=== PATIENT | female | born 1945 | race Caucasian/White ===

== ENCOUNTER 2020-05-15 09:11 | Outpatient (CLI) | payer MEDICARE, OTHER, SELFPAY ==
[2020-05-15] MEDS: iohexol 300 mg/mL 50 mL Btl PO (10:02)
--- NOTE | 2020-05-15 11:00 | CT_ITS ---
WS: [id number] CT ABDOMEN PELVIS TECHNIQUE: Contrast-enhanced CT of the abdomen and pelvis with coronal and sagittal reformatted image s. CLINICAL INFORMATION: abdominal mass, scar tissure COMPARISON: None. DLP: 1129.[address] scans at [facility] use at least one of these dose optimization techniques: automat ed exposure control; mA and/or kV adjustment per patient size (includes targeted exams where dose is matched to clinical indication); or iterative reconstruction. FINDINGS: Diffuse fatty infiltration of the liver. Cholecystectomy. Prior hysterectomy. Normal spleen. Subsegme ntal atelectasis right lower lobe. Normal pancreas. Adrenal glands are normal. Normal renal parenchym al enhancement. Small left renal cysts. No hydronephrosis in either kidney. Normal caliber abdominal aorta. Aortic calcification. No periaortic lymphadenopathy. Sigmoid diverticulosis. No evidence of acute diverticulitis. No evidence of small or large bowel obst ruction. Incidental fat-containing umbilical hernia. No herniated bowel. No abdominal or pelvic lymphadenopath y. No inguinal lymphadenopathy. Pelvic phleboliths. Disc osteophyte complex L3-4. Impression CT/CT abdomen pelvis w con* [id number] IMPRESSION: 1. Diffuse fatty infiltration of the liver. 2. Prior cholecystectomy and hysterectomy. 3. Incidental fat-containing umbilical hernia. No herniated bowel. 4. No abdominal or pelvic lymphadenopathy. 5. No other significant findings.
[2020-05-15] MEDS: iodixanol 320 mg/mL 100mL Btl IV (11:16)
== END 2020-05-15 09:12 | disposition home or self-care (01) ==
LOC: RADWPI 09:17
PROVIDERS: Family Provider Electrodiagnostic Medicine; PCP Electrodiagnostic Medicine; Visit Provider Surgery
DX: R19.00 Intra-abdominal and pelvic swelling, mass and lump, unspecified site (principal); K76.0 Fatty (change of) liver, not elsewhere classified; Z90.49 Acquired absence of other specified parts of digestive tract; Z90.710 Acquired absence of both cervix and uterus; K42.9 Umbilical hernia without obstruction or gangrene
CPT/HCPCS: 74177; Q9967

== ENCOUNTER → 2021-01-29 08:26 | Outpatient (BNVA) | payer MEDICARE, OTHER, SELFPAY | PROVIDERS: Family Provider Electrodiagnostic Medicine; PCP Electrodiagnostic Medicine; Visit Provider Specialist | DX: G62.89 Other specified polyneuropathies (principal) | CPT/HCPCS: 95885; 95909; 99203 ==

== ENCOUNTER 2021-04-10 12:31 | Outpatient (CLI) | payer MEDICARE, OTHER, SELFPAY ==
--- NOTE | 2021-04-10 12:38 | USCV_ITS ---
Abi Bone Age: 76 Gender: F : 1945 Exam Date: 04/10/2021 12:45 Ordering Phys: Russell Bear DO Technologist: Tremayne Alfaro Exam Location: [facility] – [place] Indication: SWELLING HISTORY: Lower extremity swelling. PROCEDURES: Venous duplex imaging was performed in only the right lower extremity. The following venous structures were evaluated: common femoral vein, profunda vein, proximal portion of the greater saphenous vein, superficial femoral vein, and the popliteal vein. In addition, the posterior tibial and peroneal trunk were evaluated. FINDINGS: Normal 2-D Doppler and augmentation and compressibility throughout the lower extremity venous structures. Additional imaging through the proximal calf veins also reveals no thrombus. Limited evaluation of the greater saphenous vein is patent with no thrombus.. CONCLUSIONS No evidence of right lower extremity DVT. Guerrero Parrish MD (Electronically Signed) Final Date: 10 April 2021 17:08 S
== END 2021-04-10 12:32 | disposition home or self-care (01) ==
LOC: RAD 12:35
PROVIDERS: PCP Electrodiagnostic Medicine; Visit Provider Electrodiagnostic Medicine
DX: E09.9 Drug or chemical induced diabetes mellitus without complications (principal); L84 Corns and callosities; L97.909 Non-pressure chronic ulcer of unspecified part of unspecified lower leg with unspecified severity; L30.1 Dyshidrosis [pompholyx]; M79.671 Pain in right foot; R60.0 Localized edema
CPT/HCPCS: 93971

== ENCOUNTER 2021-06-15 08:41 | Outpatient (CLI) | payer MEDICARE, OTHER, SELFPAY | END 2021-06-15 08:42 | disposition home or self-care (01) | LOC: WOUND 08:42 | PROVIDERS: PCP Electrodiagnostic Medicine; Visit Provider Emergency Medicine | DX: E11.621 Type 2 diabetes mellitus with foot ulcer (principal); L97.512 Non-pressure chronic ulcer of other part of right foot with fat layer exposed; I10 Essential (primary) hypertension; L97.519 Non-pressure chronic ulcer of other part of right foot with unspecified severity | CPT/HCPCS: 11042; 73630; 87070; 87077; 87176; 87186; 87205; 99203; G0463 ==

== ENCOUNTER 2021-06-15 11:18 | Outpatient (CLI) | payer MEDICARE, OTHER, SELFPAY ==
--- NOTE | 2021-06-15 11:24 | XR_ITS ---
WS: [id number] Exam: XR foot RT min 3V* [id number] Date/Time of Exam: 06/15/2021 11:24 AM Reason For Exam: DM/TYPE II W/ULCER No fracture or dislocation. There is soft tissue swelling and ulceration of the great toe. No sign of bone destruction. Degenerative changes in the IP joints, first MP joint in the midfoot joints. Moder ate bunion deformity. Calcaneal spurs. Hammertoe deformities of the second through the fifth toes. XR/XR foot RT min 3V* [id number] IMPRESSION: 1. No fracture or bone destruction. 2. Soft tissue swelling ulceration of the great toe. 3. Degenerative changes and other nonacute findings
== END 2021-06-15 11:19 | disposition home or self-care (01) ==
LOC: RAD 11:23
PROVIDERS: PCP Electrodiagnostic Medicine; Visit Provider Emergency Medicine
DX: E11.621 Type 2 diabetes mellitus with foot ulcer (principal); L97.519 Non-pressure chronic ulcer of other part of right foot with unspecified severity
CPT/HCPCS: 73630

== ENCOUNTER 2021-06-17 14:22 | Outpatient (RCR) | payer MEDICARE, OTHER, SELFPAY | END 2021-06-30 23:59 | disposition home or self-care (01) | LOC: SPT 14:22 | PROVIDERS: PCP Electrodiagnostic Medicine; Visit Provider Electrodiagnostic Medicine | DX: R59.1 Generalized enlarged lymph nodes (principal); R60.0 Localized edema; G62.9 Polyneuropathy, unspecified; L84 Corns and callosities; L97.909 Non-pressure chronic ulcer of unspecified part of unspecified lower leg with unspecified severity | CPT/HCPCS: 97140; 97161 ==

== ENCOUNTER 2021-06-22 08:43 | Outpatient (CLI) | payer MEDICARE, OTHER, SELFPAY | END 2021-06-22 08:44 | disposition home or self-care (01) | LOC: WOUND 08:46 | PROVIDERS: PCP Electrodiagnostic Medicine; Visit Provider Emergency Medicine | DX: I96 Gangrene, not elsewhere classified (principal); E11.621 Type 2 diabetes mellitus with foot ulcer; L97.512 Non-pressure chronic ulcer of other part of right foot with fat layer exposed; I10 Essential (primary) hypertension | CPT/HCPCS: 11042; 99212; A6252 ==

== ENCOUNTER 2021-06-29 08:43 | Outpatient (CLI) | payer MEDICARE, OTHER, SELFPAY | END 2021-06-29 08:44 | disposition home or self-care (01) | LOC: WOUND 08:44 | PROVIDERS: PCP Electrodiagnostic Medicine; Visit Provider Emergency Medicine | DX: E11.621 Type 2 diabetes mellitus with foot ulcer (principal); L97.512 Non-pressure chronic ulcer of other part of right foot with fat layer exposed; I10 Essential (primary) hypertension | CPT/HCPCS: 11042; 87070; 87176; 87205; 99212 ==

== ENCOUNTER 2021-07-03 13:18 | Outpatient (CLI) | payer MEDICARE, OTHER, SELFPAY ==
--- NOTE | 2021-07-03 13:30 | USCV_ITS ---
Abi Bone Age: 76 Gender: F : 1945 Exam Date: 07/03/2021 13:45 Ordering Phys: Keyur Mccall M.D ([email or web address]) Technologist: BRITTANEY [place] [facility] [place]: HISTORY: Chronic RIGHT 1st toe ulcerations intermittently x 3 years. No hx DVT. Has been taking antibiotics to help resolve ulcerations. 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 PROCEDURES: Comparison: none available. The venous duplex Doppler examination of both lower extremities was performed in the standard fashion. The following venous structures were evaluated: common femoral vein, profunda vein, proximal portion of the greater saphenous vein, superficial femoral vein, and the popliteal vein. In addition, the posterior tibial veins were evaluated. In addition, the posterior tibial and peroneal trunk were evaluated. Serial compression, augmentation maneuvers, and spectral Doppler flow evaluation were performed. An evaluation for venous insufficiency was also completed. Grayscale and doppler images were obtained. Reflux maneuvers were performed with patient in the standing position. Bilateral duplex Venous Insufficiency study of the Deep and Superficial systems was carried out according to normal protocol with the patient in supine positon for deep system and dependent position for the superficial system. FINDINGS: Hypoechoic circumscribed lesion in the right groin area-1.69 x 3.30cm CONCLUSIONS 1. No evidence of DVT in the above-mentioned veins. 2. Significant venous reflux of greater than 1000 ms was noted in the right common femoral vein 3. No other significant reflux were noted either in the superficial or deep veins. 4. Possible enlarged lymph node in the right groin, measuring 1.69 x 3.3 cm 5. The venous dimensions and depth from the surface are as mentioned above. The superficial veins were found to be relatively of medium to large caliber. No similar previous studies are available for comparison Dr Jameson Ng MD [facility] (Electronically Signed) Final Date: 09 July 2021 08:14 S
== END 2021-07-03 13:19 | disposition home or self-care (01) ==
LOC: US 13:18
PROVIDERS: PCP Electrodiagnostic Medicine; Visit Provider Internal Medicine
DX: M79.89 Other specified soft tissue disorders (principal)
CPT/HCPCS: 93970

== ENCOUNTER 2021-07-06 10:58 | Outpatient (CLI) | payer MEDICARE, OTHER, SELFPAY | END 2021-07-06 10:59 | disposition home or self-care (01) | LOC: WOUND 10:59 | PROVIDERS: PCP Electrodiagnostic Medicine; Visit Provider Emergency Medicine | DX: I96 Gangrene, not elsewhere classified (principal); E11.621 Type 2 diabetes mellitus with foot ulcer; L97.512 Non-pressure chronic ulcer of other part of right foot with fat layer exposed; I10 Essential (primary) hypertension | CPT/HCPCS: 11042 ==

== ENCOUNTER 2021-07-06 13:22 | Outpatient (CLI) | payer MEDICARE, OTHER, SELFPAY ==
--- NOTE | 2021-07-06 13:30 | USCV_ITS ---
Abi Bone Age: 76 Gender: F : 1945 Exam Date: 07/06/2021 14:46 Ordering Phys: Keyur Mccall M.D ([email or web address]) Technologist: BRITTANEY Exam Location: [facility] – [place] Indication: Non-healing RIGHT toe ulcer x 2 months. No hx DVT. Risk Factors: Previous Vascular Surgery: None RIGHT LEFT BP: 141.0 / BP: 140.0/ 0 0 Waveform Velocity (cm/s) Velocity (cm/s) Waveform Biphasic 85.4 Iliac Prox 215.1 Biphasic Biphasic Iliac Mid Biphasic 205.1 191.0 Biphasic 160.8 Iliac Distal 187.0 Biphasic Triphasic 160.8 CATCH [employer] CLEANER 211.1 Biphasic Triphasic 158.5 SFA Prox 124.1 Biphasic Triphasic 133.6 SFA Mid 127.7 Biphasic Triphasic 153.8 SFA Dist 88.1 Biphasic Biphasic 133.6 POP 102.5 Biphasic Biphasic 174.0 SMELLER 133.6 Biphasic Biphasic 105.5 DPA 91.7 Biphasic 1.2 MERI 1.2 FINDINGS Normal resting ABIs bilaterally Normal arterial Doppler waveform Mild diffuse plaques bilaterally in the iliac and femoral arteries CONCLUSIONS Mild diffuse plaques in the iliac and femoral arteries bilaterally. Normal resting ABIs bilaterally, suggesting no significant arterial obstruction. Compared to the study from 05/02/2019, there may not be a significant change Dr Jameson Ng MD [facility] (Electronically Signed) Final Date: 07 July 2021 08:31 S
== END 2021-07-06 13:23 | disposition home or self-care (01) ==
PROVIDERS: PCP Electrodiagnostic Medicine; Visit Provider Internal Medicine
DX: M79.606 Pain in leg, unspecified (principal); L97.519 Non-pressure chronic ulcer of other part of right foot with unspecified severity; I70.8 Atherosclerosis of other arteries
CPT/HCPCS: 93925

== ENCOUNTER → 2021-07-08 13:20 | Outpatient (BNVA) | payer MEDICARE, OTHER, SELFPAY | PROVIDERS: PCP Electrodiagnostic Medicine; Visit Provider Podiatrist Foot & Ankle Surgery | DX: M25.571 Pain in right ankle and joints of right foot (principal); M25.471 Effusion, right ankle; M21.271 Flexion deformity, right ankle and toes; M77.31 Calcaneal spur, right foot; M79.89 Other specified soft tissue disorders; M19.072 Primary osteoarthritis, left ankle and foot; M19.071 Primary osteoarthritis, right ankle and foot | CPT/HCPCS: 73610; 73630 ==

== ENCOUNTER 2021-07-08 14:19 | Outpatient (CLI) | payer MEDICARE, OTHER, SELFPAY | END 2021-07-08 14:20 | disposition home or self-care (01) | LOC: SPT 14:21 | PROVIDERS: PCP Electrodiagnostic Medicine; Visit Provider Podiatrist Foot & Ankle Surgery | DX: Z46.89 Encounter for fitting and adjustment of other specified devices (principal); S93.30 Unspecified subluxation and dislocation of foot | CPT/HCPCS: 97760; L4361 ==

== ENCOUNTER 2021-07-13 13:50 | Outpatient (CLI) | payer MEDICARE, OTHER, SELFPAY | END 2021-07-13 13:51 | disposition home or self-care (01) | LOC: WOUND 13:51 | PROVIDERS: PCP Electrodiagnostic Medicine; Visit Provider Emergency Medicine | DX: L97.512 Non-pressure chronic ulcer of other part of right foot with fat layer exposed; I96 Gangrene, not elsewhere classified; E11.621 Type 2 diabetes mellitus with foot ulcer | CPT/HCPCS: 11042 ==

== ENCOUNTER 2021-08-04 15:19 | Outpatient (CLI) | payer MEDICARE, OTHER, SELFPAY | END 2021-08-04 15:20 | disposition home or self-care (01) | LOC: WOUND 15:20 | PROVIDERS: PCP Electrodiagnostic Medicine; Visit Provider Nurse Practitioner Family | DX: E11.621 Type 2 diabetes mellitus with foot ulcer (principal); L97.512 Non-pressure chronic ulcer of other part of right foot with fat layer exposed | CPT/HCPCS: 11042 ==

== ENCOUNTER 2021-08-11 15:09 | Outpatient (CLI) | payer MEDICARE, OTHER, SELFPAY | END 2021-08-11 15:10 | disposition home or self-care (01) | LOC: WOUND 15:10 | PROVIDERS: PCP Electrodiagnostic Medicine; Visit Provider Emergency Medicine | DX: E11.621 Type 2 diabetes mellitus with foot ulcer (principal); L97.512 Non-pressure chronic ulcer of other part of right foot with fat layer exposed | CPT/HCPCS: 11042; 87070; 87077; 87176; 87186; 87205; 99212 ==

== ENCOUNTER 2021-08-18 14:07 | Outpatient (CLI) | payer MEDICARE, OTHER, SELFPAY | END 2021-08-18 14:08 | disposition home or self-care (01) | LOC: WOUND 14:08 | PROVIDERS: PCP Electrodiagnostic Medicine; Visit Provider Emergency Medicine | DX: E11.621 Type 2 diabetes mellitus with foot ulcer (principal); L97.512 Non-pressure chronic ulcer of other part of right foot with fat layer exposed; I10 Essential (primary) hypertension | CPT/HCPCS: 11042 ==

== ENCOUNTER 2021-08-25 14:49 | Outpatient (CLI) | payer MEDICARE, OTHER, SELFPAY | END 2021-08-25 14:50 | disposition home or self-care (01) | LOC: WOUND 14:51 | PROVIDERS: PCP Electrodiagnostic Medicine; Visit Provider Emergency Medicine | DX: E11.621 Type 2 diabetes mellitus with foot ulcer (principal); L97.512 Non-pressure chronic ulcer of other part of right foot with fat layer exposed | CPT/HCPCS: 11042 ==

== ENCOUNTER 2021-09-01 15:02 | Outpatient (CLI) | payer MEDICARE, OTHER, SELFPAY | END 2021-09-01 15:03 | disposition home or self-care (01) | LOC: WOUND 15:02 | PROVIDERS: PCP Electrodiagnostic Medicine; Visit Provider Emergency Medicine | DX: E11.621 Type 2 diabetes mellitus with foot ulcer (principal); L97.512 Non-pressure chronic ulcer of other part of right foot with fat layer exposed | CPT/HCPCS: 11042 ==

== ENCOUNTER 2021-09-08 14:12 | Outpatient (CLI) | payer MEDICARE, OTHER, SELFPAY | END 2021-09-08 14:13 | disposition home or self-care (01) | LOC: WOUND 14:13 | PROVIDERS: PCP Electrodiagnostic Medicine; Visit Provider Emergency Medicine | DX: E11.621 Type 2 diabetes mellitus with foot ulcer (principal); L97.512 Non-pressure chronic ulcer of other part of right foot with fat layer exposed | CPT/HCPCS: 11042 ==

== ENCOUNTER 2021-09-15 09:40 | Outpatient (CLI) | payer MEDICARE, OTHER, SELFPAY | END 2021-09-15 09:41 | disposition home or self-care (01) | LOC: WOUND 09:40 | PROVIDERS: PCP Electrodiagnostic Medicine; Visit Provider Emergency Medicine | DX: E11.621 Type 2 diabetes mellitus with foot ulcer (principal); L97.512 Non-pressure chronic ulcer of other part of right foot with fat layer exposed | CPT/HCPCS: 11042 ==

== ENCOUNTER 2021-09-29 13:09 | Outpatient (CLI) | payer MEDICARE, OTHER, SELFPAY | END 2021-09-29 13:10 | disposition home or self-care (01) | LOC: WOUND 13:11 | PROVIDERS: PCP Electrodiagnostic Medicine; Visit Provider Thoracic Surgery (Cardiothoracic Vascular Surgery) | DX: I96 Gangrene, not elsewhere classified (principal); E11.621 Type 2 diabetes mellitus with foot ulcer; L97.512 Non-pressure chronic ulcer of other part of right foot with fat layer exposed | CPT/HCPCS: 97597 ==

== ENCOUNTER 2021-09-30 07:30 | Outpatient (CLI) | payer MEDICARE, OTHER, SELFPAY ==
--- NOTE | 2021-09-30 08:00 | USCV_ITS ---
Abi Bone Age: 76 Gender: F : 1945 Exam Date: 09/30/2021 07:44 Ordering Phys: Keyur Mccall M.D ([email or web address]) Technologist: NIRAJ [place] [facility] [place]: Shortness of breath BP: 134 / 67 HR: 65 Rhythm: Sinus Technical Quality: Suboptimal MEASUREMENTS (Male / Female) Normal Values 2D ECHO LV Diastolic Diameter PLAX 4.7 cm 4.2 - 5.9 / 3.9 - 5.3 cm LV Systolic Diameter PLAX 3.2 cm IVS Diastolic Thickness 1.0 cm 0.6 - 1.0 / 0.6 - 0.9 cm IVS Systolic Thickness 1.2 cm LVPW Diastolic Thickness 1.0 cm 0.6 - 1.0 / 0.6 - 0.9 cm LVPW Systolic Thickness 1.4 cm LVOT Diameter 2.0 cm LV Ejection Fraction 2D Teich 60.3 % LV Ejection Fraction MOD 2C 46.1 % LV Ejection Fraction 2C AL 45.2 % LA Diameter 3.6 cm LA Width 3.4 cm LA Height 4.3 cm RA Width 2.7 cm RA Height 3.8 cm Aorta at Sinotubular Diameter 1.6 cm M-MODE Aortic Annulus Diameter 2.6 cm LA Ao Ratio MM 1.5 MV E Point Septal Separation 0.3 cm DOPPLER AV Peak Velocity 121.0 cm/s LVOT Peak Velocity 91.0 cm/s AV Area Cont Eq vti 2.7 cm squared AV Area Cont Eq pk 2.4 cm squared MV Area PHT 4.1 cm squared Mitral E to A Ratio 0.7 MV E' Velocity 39.5 cm/s Mitral E to MV E' Ratio 8.8 Mitral E to LV E' Lateral Ratio 8.5 Mitral E to LV E' Septal Ratio 9.1 TR Peak Velocity 346.8 cm/s TR Peak Gradient 48.1 mmHg TR Mean Velocity 194.9 cm/s TR Mean Gradient 16.9 mmHg TR Velocity Time Integral 97.5 cm TV Peak E Velocity 51.0 cm/s Right Atrial Pressure 3.0 mmHg Pulmonary Artery Systolic Pressu 51.1 mmHg RV Acceleration Time 0.2 s RV Ejection Time 0.4 s RV AcT/ET 0.5 FINDINGS Left Ventricle Normal left ventricular size. LV systolic function is normal with EF of 55-60%. No regional wall motion abnormalities. Grade 1 diastolic dysfunction Right Ventricle The right ventricle is normal in size and function. Right Atrium The right atrium is normal in size. Left Atrium The left atrium is normal in size. Mitral Valve Structurally normal mitral valve without significant stenosis or prolapse. There is no mitral regurgitation. Aortic Valve Structurally normal aortic valve without significant sclerosis or stenosis. There is no aortic regurgitation. Tricuspid Valve Structurally normal tricuspid valve without significant stenosis. Mild tricuspid regurgitation. RVSP is 35-40mmHg. This is consistent with mild pulmonary hypertension Pulmonic Valve Structurally normal pulmonic valve without significant stenosis. There is trace pulmonic regurgitation. Pericardium Normal pericardium without effusion. Aorta Normal ascending aorta dimension. CONCLUSIONS LV systolic function is normal with EF of 55-60% Grade 1 diastolic dysfunction Mild tricuspid regurgitation. Mild pulmonary hypertension Trace pulmonic regurgitation Compared to prior echocardiogram from 03/28/2019, no significant changes are noted Keyur Mccall MD (Electronically Signed) Final Date: 03 October 2021 18:17 S
== END 2021-09-30 07:31 | disposition home or self-care (01) ==
LOC: RAD 07:32
PROVIDERS: PCP Electrodiagnostic Medicine; Visit Provider Internal Medicine
DX: R06.02 Shortness of breath (principal); R07.9 Chest pain, unspecified; I07.1 Rheumatic tricuspid insufficiency; I27.20 Pulmonary hypertension, unspecified
CPT/HCPCS: 93306

== ENCOUNTER 2021-10-13 13:01 | Outpatient (CLI) | payer MEDICARE, OTHER, SELFPAY | END 2021-10-13 13:02 | disposition home or self-care (01) | LOC: WOUND 13:02 | PROVIDERS: PCP Electrodiagnostic Medicine; Visit Provider Emergency Medicine | DX: E11.621 Type 2 diabetes mellitus with foot ulcer (principal); L97.512 Non-pressure chronic ulcer of other part of right foot with fat layer exposed | CPT/HCPCS: 97597; 11042; 87070; 87077; 87176; 87186; 87205 ==

== ENCOUNTER → 2021-10-20 13:03 | Outpatient (BNVA) | payer MEDICARE, OTHER, SELFPAY | PROVIDERS: PCP Electrodiagnostic Medicine; Visit Provider Nurse Practitioner Family | DX: E11.621 Type 2 diabetes mellitus with foot ulcer (principal); I96 Gangrene, not elsewhere classified; L97.512 Non-pressure chronic ulcer of other part of right foot with fat layer exposed | CPT/HCPCS: 11042 ==

== ENCOUNTER → 2021-10-27 13:40 | Outpatient (BNVA) | payer MEDICARE, OTHER, SELFPAY | PROVIDERS: PCP Electrodiagnostic Medicine; Visit Provider Emergency Medicine | DX: E11.621 Type 2 diabetes mellitus with foot ulcer (principal); I96 Gangrene, not elsewhere classified; L97.512 Non-pressure chronic ulcer of other part of right foot with fat layer exposed | CPT/HCPCS: 11042 ==

== ENCOUNTER → 2021-11-03 13:04 | Outpatient (BNVA) | payer MEDICARE, OTHER, SELFPAY | PROVIDERS: PCP Electrodiagnostic Medicine; Visit Provider Emergency Medicine | DX: E11.621 Type 2 diabetes mellitus with foot ulcer (principal); I96 Gangrene, not elsewhere classified; L97.512 Non-pressure chronic ulcer of other part of right foot with fat layer exposed | CPT/HCPCS: 11042 ==

== ENCOUNTER → 2021-11-10 12:57 | Outpatient (BNVA) | payer MEDICARE, OTHER, SELFPAY | PROVIDERS: PCP Electrodiagnostic Medicine; Visit Provider Emergency Medicine | DX: E11.621 Type 2 diabetes mellitus with foot ulcer (principal); L97.512 Non-pressure chronic ulcer of other part of right foot with fat layer exposed; I96 Gangrene, not elsewhere classified | CPT/HCPCS: 11042; 99212 ==

== ENCOUNTER → 2021-11-17 13:05 | Outpatient (BNVA) | payer MEDICARE, OTHER, SELFPAY | PROVIDERS: PCP Electrodiagnostic Medicine; Visit Provider Emergency Medicine | DX: E11.621 Type 2 diabetes mellitus with foot ulcer (principal); I96 Gangrene, not elsewhere classified; L97.512 Non-pressure chronic ulcer of other part of right foot with fat layer exposed | CPT/HCPCS: 15275; 73660; Q4187 ==

== ENCOUNTER → 2021-11-24 12:57 | Outpatient (BNVA) | payer MEDICARE, OTHER, SELFPAY | PROVIDERS: PCP Electrodiagnostic Medicine; Visit Provider Emergency Medicine | DX: E11.621 Type 2 diabetes mellitus with foot ulcer (principal); L97.512 Non-pressure chronic ulcer of other part of right foot with fat layer exposed; I96 Gangrene, not elsewhere classified | CPT/HCPCS: 15275; A6206; Q4187 ==

== ENCOUNTER → 2021-12-08 13:10 | Outpatient (BNVA) | payer MEDICARE, OTHER, SELFPAY | PROVIDERS: PCP Electrodiagnostic Medicine; Visit Provider Emergency Medicine | DX: E11.621 Type 2 diabetes mellitus with foot ulcer (principal); L97.512 Non-pressure chronic ulcer of other part of right foot with fat layer exposed; I96 Gangrene, not elsewhere classified | CPT/HCPCS: 15275; A6206; Q4187 ==

== ENCOUNTER → 2021-12-15 13:05 | Outpatient (BNVA) | payer MEDICARE, OTHER, SELFPAY | PROVIDERS: PCP Electrodiagnostic Medicine; Visit Provider Emergency Medicine | DX: E11.621 Type 2 diabetes mellitus with foot ulcer (principal); L97.512 Non-pressure chronic ulcer of other part of right foot with fat layer exposed; I96 Gangrene, not elsewhere classified | CPT/HCPCS: 15275; Q4187 ==

== ENCOUNTER → 2021-12-22 13:02 | Outpatient (BNVA) | payer MEDICARE, OTHER, SELFPAY | PROVIDERS: PCP Electrodiagnostic Medicine; Visit Provider Nurse Practitioner Family | DX: E11.621 Type 2 diabetes mellitus with foot ulcer (principal); L97.512 Non-pressure chronic ulcer of other part of right foot with fat layer exposed; I96 Gangrene, not elsewhere classified | CPT/HCPCS: 11042; A6021 ==

== ENCOUNTER → 2021-12-29 13:06 | Outpatient (BNVA) | payer MEDICARE, OTHER, SELFPAY | PROVIDERS: PCP Electrodiagnostic Medicine; Visit Provider Nurse Practitioner Family | DX: E11.621 Type 2 diabetes mellitus with foot ulcer (principal); I96 Gangrene, not elsewhere classified; L97.512 Non-pressure chronic ulcer of other part of right foot with fat layer exposed | CPT/HCPCS: 11042 ==

== ENCOUNTER → 2022-01-05 13:07 | Outpatient (BNVA) | payer MEDICARE, OTHER, SELFPAY | PROVIDERS: PCP Electrodiagnostic Medicine; Visit Provider Nurse Practitioner Family | DX: E11.621 Type 2 diabetes mellitus with foot ulcer (principal); L97.512 Non-pressure chronic ulcer of other part of right foot with fat layer exposed; I96 Gangrene, not elsewhere classified | CPT/HCPCS: 11042 ==

== ENCOUNTER → 2022-01-12 13:05 | Outpatient (BNVA) | payer MEDICARE, OTHER, SELFPAY | PROVIDERS: PCP Electrodiagnostic Medicine; Visit Provider Nurse Practitioner Family | DX: E11.621 Type 2 diabetes mellitus with foot ulcer (principal); L97.512 Non-pressure chronic ulcer of other part of right foot with fat layer exposed; I96 Gangrene, not elsewhere classified | CPT/HCPCS: 11042 ==

== ENCOUNTER → 2022-01-19 13:13 | Outpatient (BNVA) | payer MEDICARE, OTHER, SELFPAY | PROVIDERS: PCP Electrodiagnostic Medicine; Visit Provider Nurse Practitioner Family | DX: E11.621 Type 2 diabetes mellitus with foot ulcer (principal); L97.512 Non-pressure chronic ulcer of other part of right foot with fat layer exposed; I96 Gangrene, not elsewhere classified | CPT/HCPCS: 11042 ==

== ENCOUNTER → 2022-01-26 13:08 | Outpatient (BNVA) | payer MEDICARE, OTHER, SELFPAY | PROVIDERS: PCP Electrodiagnostic Medicine; Visit Provider Nurse Practitioner Family | DX: E11.621 Type 2 diabetes mellitus with foot ulcer (principal); L97.512 Non-pressure chronic ulcer of other part of right foot with fat layer exposed; I96 Gangrene, not elsewhere classified | CPT/HCPCS: 11042 ==

== ENCOUNTER → 2022-02-02 13:00 | Outpatient (BNVA) | payer MEDICARE, OTHER, SELFPAY | PROVIDERS: PCP Electrodiagnostic Medicine; Visit Provider Emergency Medicine | DX: E11.621 Type 2 diabetes mellitus with foot ulcer (principal); L97.512 Non-pressure chronic ulcer of other part of right foot with fat layer exposed; I96 Gangrene, not elsewhere classified | CPT/HCPCS: 11042; A6197; A6219 ==

== ENCOUNTER → 2022-02-09 13:09 | Outpatient (BNVA) | payer MEDICARE, OTHER, SELFPAY | PROVIDERS: PCP Electrodiagnostic Medicine; Visit Provider Nurse Practitioner Family | DX: E11.621 Type 2 diabetes mellitus with foot ulcer (principal); L97.512 Non-pressure chronic ulcer of other part of right foot with fat layer exposed; I96 Gangrene, not elsewhere classified | CPT/HCPCS: 11042 ==

== ENCOUNTER → 2022-02-16 13:01 | Outpatient (BNVA) | payer MEDICARE, OTHER, SELFPAY | PROVIDERS: PCP Electrodiagnostic Medicine; Visit Provider Nurse Practitioner Family | DX: E11.621 Type 2 diabetes mellitus with foot ulcer (principal); L97.512 Non-pressure chronic ulcer of other part of right foot with fat layer exposed; I96 Gangrene, not elsewhere classified; L97.509 Non-pressure chronic ulcer of other part of unspecified foot with unspecified severity; M19.071 Primary osteoarthritis, right ankle and foot; S93.301A Unspecified subluxation of right foot, initial encounter; X58.XXXA Exposure to other specified factors, initial encounter | CPT/HCPCS: 11042; 73630; 87070; 87077; 87186 ==

== ENCOUNTER 2022-02-16 14:02 | Outpatient (CLI) | payer MEDICARE, OTHER, SELFPAY ==
--- NOTE | 2022-02-16 14:27 | XR_ITS ---
WS: [id number] XR foot RT min 3V* [id number] REASON FOR EXAM: diabetic foot ulcer FINDINGS: Narrowing of the joint spaces with subchondral sclerosis in the DIP and PIP joints of the toes with s ubluxations at the PIP joints. Similar but more severe arthropathic change in the metatarsal-phalangeal joint of the great toe with moderate valgus deformity. Similar but more severe arthropathic change in the carpal metacarpal joint of the great toe. Large overhanging lateral osteophyte from the base of the proximal phalanx of the second toe. There is soft tissue swelling of the great toe distal to the metatarsal-phalangeal joint. No findings of septic arthritis or osteomyelitis are identified. The Lisfranc, intertarsal, and Chopart joints demonstrate narrowing of the joint spaces with subchond ral sclerosis and small marginal osteophytes. There is mild to moderate narrowing of the subtalar joint with subchondral sclerosis. Moderate calcaneal plantar enthesophyte. XR/XR foot RT min 3V* [id number] IMPRESSION: Osteoarthritis the right foot with subluxations. No findings of septic arthritis or osteomyelitis.
== END 2022-02-16 14:03 | disposition home or self-care (01) ==
PROVIDERS: PCP Electrodiagnostic Medicine; Visit Provider Nurse Practitioner Family
DX: E11.621 Type 2 diabetes mellitus with foot ulcer (principal); L97.509 Non-pressure chronic ulcer of other part of unspecified foot with unspecified severity; M19.071 Primary osteoarthritis, right ankle and foot; S93.301A Unspecified subluxation of right foot, initial encounter; X58.XXXA Exposure to other specified factors, initial encounter
CPT/HCPCS: 73630; 87070; 87077; 87186

== ENCOUNTER → 2022-02-23 13:01 | Outpatient (BNVA) | payer MEDICARE, OTHER, SELFPAY | PROVIDERS: PCP Electrodiagnostic Medicine; Visit Provider Nurse Practitioner Family | DX: E11.621 Type 2 diabetes mellitus with foot ulcer (principal); L97.522 Non-pressure chronic ulcer of other part of left foot with fat layer exposed; I96 Gangrene, not elsewhere classified | CPT/HCPCS: 11042 ==

== ENCOUNTER → 2022-03-02 13:00 | Outpatient (BNVA) | payer MEDICARE, OTHER, SELFPAY | PROVIDERS: PCP Electrodiagnostic Medicine; Visit Provider Nurse Practitioner Family | DX: E11.621 Type 2 diabetes mellitus with foot ulcer (principal); L97.512 Non-pressure chronic ulcer of other part of right foot with fat layer exposed; I96 Gangrene, not elsewhere classified | CPT/HCPCS: 11042 ==

== ENCOUNTER → 2022-03-09 12:58 | Outpatient (BNVA) | payer MEDICARE, OTHER, SELFPAY | PROVIDERS: PCP Electrodiagnostic Medicine; Visit Provider Nurse Practitioner Family | DX: E11.621 Type 2 diabetes mellitus with foot ulcer (principal); L97.512 Non-pressure chronic ulcer of other part of right foot with fat layer exposed; I96 Gangrene, not elsewhere classified | CPT/HCPCS: 11042 ==

== ENCOUNTER 2022-03-12 12:34 | Outpatient (CLI) | payer MEDICARE, OTHER, SELFPAY ==
--- NOTE | 2022-03-12 13:00 | MR_ITS ---
WS: [id number] MRI OF THE RIGHT FOOT WITHOUT GADOLINIUM ENHANCEMENT. INDICATION: Nonhealing ulcer. Osteomyelitis. TECHNIQUE: Gadolinium not administered due to GFR 29. [place]une TI, axial PD, axial T2, coronal PD, edu nal T2 fat sat, sagittal T1, sagittal STIR imaging. FINDINGS: Area of concern marked along the plantar surface 1st great toe. Hallux valgus. Palpable mar ker on the plantar surface of the great toe laterally. No evidence of drainable abscess or fluid fanta ection. Subcutaneous soft tissue edema. Bone marrow signal in the underlying proximal phalanx is pres erved. Small amount of fluid and soft tissue edema extends around the distal phalanx and DIP joint. A bnormal bone marrow signal in the 1st distal phalanx with associated fluid and edema suspicious for o steomyelitis. Small amount of fluid in the DIP joint. No drainable abscess or fluid collection. Normal bone marrow signal in the 1st metatarsal with advanced degenerative arthritis at the 1st MTP. No other acute findings. Plantar calcaneal spurring. Distal Achilles appears normal. Osteoarthritis involving the talocalcanea l articulation with subchondral cystic change. Subchondral cystic change involving the cuboid navicul ar and tarsal bones. Mild associated edema. Pes planus. MR/MR foot RT wo con* [id number] IMPRESSION: 1. Ulceration along the distal phalanx 1st toe plantar surface laterally. No e vidence of drainable abscess or fluid collection. 2. Suspected findings of osteomyelitis involving the distal 1st phalanx as sanket cribed above. Small amount of fluid in the 1st DIP joint. 3. No other acute findings.
== END 2022-03-12 12:35 | disposition home or self-care (01) ==
LOC: RAD 12:34
PROVIDERS: PCP Electrodiagnostic Medicine; Visit Provider Emergency Medicine
DX: L97.518 Non-pressure chronic ulcer of other part of right foot with other specified severity (principal); M79.671 Pain in right foot
CPT/HCPCS: 73718

== ENCOUNTER → 2022-03-16 12:58 | Outpatient (BNVA) | payer MEDICARE, OTHER, SELFPAY | PROVIDERS: PCP Electrodiagnostic Medicine; Visit Provider Nurse Practitioner Family | DX: E11.621 Type 2 diabetes mellitus with foot ulcer (principal); L97.512 Non-pressure chronic ulcer of other part of right foot with fat layer exposed; I96 Gangrene, not elsewhere classified | CPT/HCPCS: 11042 ==

== ENCOUNTER → 2022-03-23 13:06 | Outpatient (BNVA) | payer MEDICARE, OTHER, SELFPAY | PROVIDERS: PCP Electrodiagnostic Medicine; Visit Provider Nurse Practitioner Family | DX: E11.621 Type 2 diabetes mellitus with foot ulcer (principal); L97.512 Non-pressure chronic ulcer of other part of right foot with fat layer exposed; I96 Gangrene, not elsewhere classified | CPT/HCPCS: 11042 ==

== ENCOUNTER → 2022-03-30 13:02 | Outpatient (BNVA) | payer MEDICARE, OTHER, SELFPAY | PROVIDERS: PCP Electrodiagnostic Medicine; Visit Provider Nurse Practitioner Family | DX: I96 Gangrene, not elsewhere classified (principal); L97.512 Non-pressure chronic ulcer of other part of right foot with fat layer exposed | CPT/HCPCS: 11042 ==

== ENCOUNTER → 2022-04-06 13:02 | Outpatient (BNVA) | payer MEDICARE, OTHER, SELFPAY | PROVIDERS: PCP Electrodiagnostic Medicine; Visit Provider Nurse Practitioner Family | DX: E11.621 Type 2 diabetes mellitus with foot ulcer (principal); L97.812 Non-pressure chronic ulcer of other part of right lower leg with fat layer exposed; I96 Gangrene, not elsewhere classified | CPT/HCPCS: 11042 ==

== ENCOUNTER → 2022-10-25 11:07 | Outpatient (BNVA) | payer MEDICARE, OTHER, SELFPAY | PROVIDERS: PCP Electrodiagnostic Medicine; Visit Provider Student in an Organized Health Care Education/Training Program | DX: M14.671 Charcot's joint, right ankle and foot (principal); B37.0 Candidal stomatitis; I89.0 Lymphedema, not elsewhere classified; L97.509 Non-pressure chronic ulcer of other part of unspecified foot with unspecified severity | CPT/HCPCS: 99204; 99214 ==

== ENCOUNTER 2023-12-14 13:26 | Outpatient (CLI) | payer MEDICARE, OTHER, SELFPAY ==
--- NOTE | 2023-12-14 13:31 | USCV_ITS ---
Abi Bone Age: 78 Gender: F : 1945 Exam Date: 12/14/2023 13:47 Ordering Phys: Russell Bear DO Technologist: [place] [facility] [place]: sob,murmur BP: 140 / 93 HR: 67 Rhythm: Sinus Technical Quality: Adequate MEASUREMENTS (Male / Female) Normal Values 2D ECHO LVOT Diameter 2.0 cm LV Ejection Fraction MOD 2C 54.9 % LV Ejection Fraction 2C AL 55.0 % LA Diameter 3.8 cm RA Systolic Volume 4C AL 25.6 ml RA Systolic Volume 4C MOD 25.1 ml LA Sys Volume AL 58.2 cm cubed LA Sys Volume Index AL 28.4 cm cubed/m squared Aorta at Sinotubular Diameter 2.1 cm IVC Diameter 1.9 cm M-MODE LA Ao Ratio MM 1.6 AV Cusp Separation MM 1.8 cm DOPPLER AV Peak Velocity 141.0 cm/s LVOT Peak Velocity 89.0 cm/s AV Area Cont Eq vti 2.5 cm squared AV Area Cont Eq pk 2.1 cm squared MV Peak Velocity 94.0 cm/s MV Area PHT 2.8 cm squared Mitral E to A Ratio 0.7 TV Peak Velocity 232.7 cm/s TR Peak Velocity 292.0 cm/s TR Peak Gradient 34.1 mmHg TV Peak E Velocity 95.0 cm/s Right Atrial Pressure 3.0 mmHg Pulmonary Artery Systolic Pressu 37.1 mmHg PV Peak Velocity 112.0 cm/s FINDINGS Left Ventricle Mild concentric left ventricular hypertrophy. Normal LV ejection fraction of 55%.no regional wall motion abnormalities. Grade I/IV diastolic dysfunction (abnormal relaxation filling pattern), normal to mildly elevated filling pressures. Right Ventricle The right ventricle is normal in size and function. Right Atrium The right atrium is normal in size. Left Atrium Mildly increased left atrial size. Mildly increased left atrial volume 30 ml/m squared. Mitral Valve No gross abnormalities noted Aortic Valve Minimal thickening of the noncoronary cusp of the aortic valve. Tricuspid Valve Mild tricuspid valve regurgitation. Estimated pulmonary artery peak systolic pressure 37 mmHg Pulmonic Valve No gross abnormalities noted Pericardium Normal pericardium without effusion. Aorta Normal ascending aorta dimension. IVC The inferior vena cava appears normal. CONCLUSIONS Mild concentric left ventricular hypertrophy. Normal LV ejection fraction of 55%.no regional wall motion abnormalities. Grade I/IV diastolic dysfunction (abnormal relaxation filling pattern), normal to mildly elevated filling pressures. Mildly increased left atrial size. Mildly increased left atrial volume 30 ml/m squared. Minimal thickening of the noncoronary cusp of the aortic valve. Mild tricuspid valve regurgitation. Estimated pulmonary artery peak systolic pressure 37 mmHg. There is no pericardial effusion. There are no intracardiac masses. Compared to the study from 03/28/2019, there may not be a significant change Dr Jameson Ng MD [facility] (Electronically Signed) Final Date: 17 Dec 2023 12:00 S
== END 2023-12-14 13:27 | disposition home or self-care (01) ==
LOC: RAD 13:27
PROVIDERS: PCP Electrodiagnostic Medicine; Visit Provider Electrodiagnostic Medicine
DX: R01.1 Cardiac murmur, unspecified (principal); I35.8 Other nonrheumatic aortic valve disorders
CPT/HCPCS: 93306

== ENCOUNTER 2024-06-29 13:19 | Outpatient (CLI) | payer MEDICARE, OTHER, SELFPAY ==
--- NOTE | 2024-06-29 13:22 | XR_ITS ---
WS: [id number] DEXA (DUAL ENERGY X-RAY ABSORPTIOMETRY) Bone mineral density was performed using a Sleep.FM machine. HISTORY: POSTMENOPAUSAL COMPARISON: None available. Lumbar spine BMD (L1-L4): 1.772 g/cm2 T score: 4.9 Z score: 5.8 Total hip BMD: Left: 1.273 g/cm2. T score: 2.1 Z score: 3.3 Right: 1.269 g/cm2. T score: 2.1 Z score: 3.3 10 year probability of a major osteoporotic fracture is 9.6%. XR/XR DEXA axial skeleton* [id number] IMPRESSION: NORMAL BONE MINERAL DENSITY based upon the WHO classification for females.
== END 2024-06-29 13:20 | disposition home or self-care (01) ==
LOC: RAD 13:19
PROVIDERS: PCP Electrodiagnostic Medicine; Visit Provider Nurse Practitioner Family
DX: Z13.820 Encounter for screening for osteoporosis (principal); Z78.0 Asymptomatic menopausal state
CPT/HCPCS: 77080

== ENCOUNTER 2024-10-04 12:48 | Outpatient (CLI) | payer MEDICARE, OTHER, SELFPAY ==
--- NOTE | 2024-10-04 12:58 | USCV_ITS ---
Abi Bone Age: 79 Gender: F : 1945 Exam Date: 10/04/2024 13:03 Ordering Phys: Russell Bear DO Technologist: USR [place] [facility] [place]: dizziness Risk Factors: Previous Vascular Surgery: Right Brachial BP: / Left Brachial BP: / Right Left Velocity (cm/s) Spectral Plaque Velocity (cm/s) Spectral Plaque Syst/Diast Broadening Syst/Diast Broadening 77.80/ 15.50 Prox CCA 110.80/ 11.10 81.50/ 19.30 Mid CCA 87.20 / 17.10 78.30/ 22.50 Distal CCA 87.00 / 21.40 59.40/ 22.30 Prox ICA 49.00 / 17.60 81.40/ 31.70 Mid ICA 73.40 / 21.90 82.50/ 29.00 Distal ICA 80.20 / 26.00 76.50 ECA 104.80 0.80 ICA/CCA 0.60 Antegrade Vertebral Antegrade 44.10/ 9.60 cm/s 54.50/ 16.40 cm/s Tri Subclavian Tri 119.6 123.2 0 0 FINDINGS Comparison: none available. No significant elevation of systolic or diastolic velocities. Waveforms are normal. Minimal bilateral, caarotid atherosclerotic plaque with no elevation of velocity. CONCLUSIONS Bilateral ICA stenosis less than 50%. Dr. Priti Jalloh DO (Electronically Signed) Final Date: 05 October 2024 09:53 S
== END 2024-10-04 12:49 | disposition home or self-care (01) ==
LOC: RAD 12:51
PROVIDERS: PCP Electrodiagnostic Medicine; Visit Provider Electrodiagnostic Medicine
DX: R42 Dizziness and giddiness (principal); I65.23 Occlusion and stenosis of bilateral carotid arteries
CPT/HCPCS: 93880

== ENCOUNTER 2024-11-28 12:13 | Outpatient (CLI) | payer MEDICARE, OTHER, SELFPAY ==
--- NOTE | 2024-11-28 12:15 | CT_ITS ---
WS: [id number] CT chest wo con [id number] HISTORY: IDIOPATHIC PULMONARY FIBROSIS TECHNIQUE: Axial imaging performed through the thorax. Coronal and sagittal reformats are submitted. All CT scans at [facility] use at least one of these dose optimization techniques: automated exposure control; mA and/or kV adjustment per patient size (includes targeted exams where dose is matched to clinical indication); or iterative reconstruction. CONTRAST: None DLP: 486.43 mGy.cm COMPARISON: 03/22/2017 Lungs and central airway: Mild volume loss and curvilinear atelectasis RIGHT lower lobe. No mass or nodule. There is mild pleural thickening and a small calcification in the RIGHT thorax. No mass. No endobronchial lesions. Pleura: Mild RIGHT pleural thickening. No effusion. Heart and pericardium: Normal size heart with no pericardial effusion. Mediastinum and selin: No mediastinum or hilar adenopathy. Vessels: Mild atherosclerosis aorta. No aneurysm. Normal size pulmonary artery. Chest wall and lower neck: Bilateral breast implants are partially calcified. Upper abdomen: Hepatic steatosis. Prior cholecystectomy. No adrenal mass. Very mild pancreatic atrophy. Osseous structures: No destructive process. CT/CT chest wo con [id number] IMPRESSION: 1. Curvilinear atelectasis RIGHT lower lobe. 2. No pulmonary mass or nodule. 3. No mediastinal or hilar adenopathy. 4. Partially calcified bilateral breast augmentations. 5. Prior cholecystectomy.
== END 2024-11-28 12:14 | disposition home or self-care (01) ==
PROVIDERS: PCP Electrodiagnostic Medicine; Visit Provider Electrodiagnostic Medicine
DX: J84.112 Idiopathic pulmonary fibrosis (principal); J98.11 Atelectasis; T85.49XA Other mechanical complication of breast prosthesis and implant, initial encounter; X58.XXXA Exposure to other specified factors, initial encounter; R92.1 Mammographic calcification found on diagnostic imaging of breast; Z98.82 Breast implant status; Z90.49 Acquired absence of other specified parts of digestive tract; R91.8 Other nonspecific abnormal finding of lung field; J92.9 Pleural plaque without asbestos; R93.89 Abnormal findings on diagnostic imaging of other specified body structures; I70.0 Atherosclerosis of aorta; K76.0 Fatty (change of) liver, not elsewhere classified; K86.89 Other specified diseases of pancreas
CPT/HCPCS: 71250

== ENCOUNTER 2025-03-19 14:09 | Outpatient (CLI) | payer MEDICARE, OTHER, SELFPAY ==
[2025-03-19 16:47] LABS: Hematocrit 25.7 % (36-47); Hemoglobin 8.10 g/dL (11.27-16.99); Mean Corpuscular HGB Conc 31.5 g/dL (30-55); Mean Corpuscular Hemoglobin 28.9 pg (27-33); Mean Corpuscular Volume 91.8 fl (85-98); Nucleated Red Blood Cells % 0 %; Platelet Count 326 10^3/cmm (157-399); Red Blood Count 2.80 10^6/uL (3.85-5.65); White Blood Count 8.93 10^3/uL (3.29-11.43)
[2025-03-19 17:10] LABS: Alanine Aminotransferase 33 U/L (0-33); Albumin Level 3.2 g/dL (3.5-5.2); Alkaline Phosphatase 114 U/L (35-105); Anion Gap 18.5 (5-19); Aspartate Amino Transferase 94 U/L (0-32); Blood Urea Nitrogen 43 mg/dL (8-23); Calcium 8.8 mg/dL (8.5-10.5); Carbon Dioxide 16 mmol/L (22-29); Chloride 109 mmol/L (98-107); Globulin 3.8 g/dL (1.3-4.6); Glucose 119 mg/dL (65-115); Osmolality Calculated 300 mOsm/kg (285-295); Potassium 4.5 mmol/L (3.5-5.1); Sodium 139 mmol/L (136-145); Total Protein 7.0 g/dL (6.6-8.7)
== END 2025-03-19 14:10 | disposition home or self-care (01) ==
LOC: LAB 14:11
PROVIDERS: PCP Electrodiagnostic Medicine
DX: M46.24 Osteomyelitis of vertebra, thoracic region (principal)
CPT/HCPCS: 80053; 82550; 85025; 85651; 86140

== ENCOUNTER 2025-05-28 09:08 | Outpatient (CLI) | payer MEDICARE, OTHER, SELFPAY ==
[2025-05-28 09:46] LABS: Hematocrit 26.6 % (36-47); Hemoglobin 8.60 g/dL (11.27-16.99); Mean Corpuscular HGB Conc 32.3 g/dL (30-55); Mean Corpuscular Hemoglobin 29.1 pg (27-33); Mean Corpuscular Volume 89.9 fl (85-98); Nucleated Red Blood Cells % 0 %; Platelet Count 174 10^3/cmm (157-399); Red Blood Count 2.96 10^6/uL (3.85-5.65); White Blood Count 4.33 10^3/uL (3.29-11.43)
[2025-05-28 09:50] LABS: Glucose Urine UA Negative (Normal); Nitrate Urine Negative (Negative); Specific Gravity, Urine 1.011 (1.005-1.030)
[2025-05-28 10:09] LABS: Albumin Level 3.7 g/dL (3.5-5.2); Anion Gap 19.5 (5-19); Blood Urea Nitrogen 35 mg/dL (8-23); Calcium 7.9 mg/dL (8.5-10.5); Carbon Dioxide 20 mmol/L (22-29); Chloride 109 mmol/L (98-107); Glucose 141 mg/dL (65-115); Potassium 3.5 mmol/L (3.5-5.1); Sodium 145 mmol/L (136-145)
[2025-05-28 10:10] LABS: Creatinine Urine, Random 61 mg/dL (28-217)
[2025-05-28 10:26] LABS: Microalbum Creatinine Ratio Ur 836 mg/dL (0-20)
== END 2025-05-28 09:09 | disposition home or self-care (01) ==
LOC: LAB 09:14
PROVIDERS: PCP Electrodiagnostic Medicine; Visit Provider Nurse Practitioner
DX: N17.9 Acute kidney failure, unspecified (principal)
CPT/HCPCS: 36415; 80069; 81001; 82044; 85025; 87086

== ENCOUNTER 2025-05-28 11:40 | Outpatient (CLI) | payer MEDICARE, OTHER, SELFPAY ==
[2025-05-28 13:22] LABS: Hepatitis B Surface Antigen Non-Reactive (Nonreactive)
== END 2025-05-28 11:41 | disposition home or self-care (01) ==
LOC: LAB 11:41
PROVIDERS: PCP Electrodiagnostic Medicine; Visit Provider Registered Nurse
DX: N18.6 End stage renal disease (principal)
CPT/HCPCS: 36415; 86705; 86706; 87340